=== PATIENT | male | born 1940 | race Caucasian/White ===

== ENCOUNTER 2020-03-06 16:51 | Emergency (ER) | payer MEDICARE, OTHER ==
[~2020-03-06] VITALS: Ht 182.9 cm; Wt 113.6 kg
[~2020-03-06 16:51] MED LIST: ACET-1008 PO; ACET-2319 PO; ALLO300T9 PO; CAR2T PO; CLOP75TA34 PO; FURO-150 PO; LOP25T PO; MAGN400C PO; MINO2.5T19 PO; OMEG1CAP2 PO; POTA20TA10 PO; PRAV40TA65 PO; RAMI5CAP65 PO; SITA50TA7 PO
[2020-03-06 17:49] VITALS: BP 165/87
== END 2020-03-06 17:54 | disposition home or self-care (01) ==
LOC: ER 16:51
DX: R11.0 Nausea (principal); R25.1 Tremor, unspecified; R10.84 Generalized abdominal pain; Z88.8 Allergy status to other drugs, medicaments and biological substances; Z79.899 Other long term (current) drug therapy
CPT/HCPCS: 99282

== ENCOUNTER 2020-04-13 13:06 | Emergency (ER) | payer MEDICARE, OTHER ==
[~2020-04-13] VITALS: Ht 182.9 cm; Wt 113.6 kg
[2020-04-13] MEDS ORDERED: hydrALAZINE 20mg/ml inj. IV ONE (16:00)
[2020-04-13 18:11] VITALS: BP 128/82
== END 2020-04-13 18:13 | disposition home or self-care (01) ==
LOC: ER 13:07
DX: I10 Essential (primary) hypertension (principal); Z88.8 Allergy status to other drugs, medicaments and biological substances; Z79.899 Other long term (current) drug therapy
CPT/HCPCS: 93005; 96374; 99284; J0360

== ENCOUNTER 2020-10-22 15:42 | Outpatient (CLI) | payer MEDICARE, OTHER ==
[~2020-10-22] VITALS: Ht 182.9 cm; Wt 106.6 kg
[~2020-10-22 15:42] MED LIST changes: +POTA-197 PO; -POTA20TA10 PO
[2020-10-22] MEDS ORDERED: albuterol 2.5 MG/3 ML nebule NEB ONE (16:55)
== END 2020-10-22 23:59 | disposition home or self-care (01) ==
LOC: RT 15:42
PROVIDERS: ATTEND Internal Medicine Cardiovascular Disease
DX: R94.2 Abnormal results of pulmonary function studies (principal); Z79.899 Other long term (current) drug therapy
CPT/HCPCS: 85018; 94060; 94727; 94729; 94760

== ENCOUNTER 2021-07-23 10:01 | Outpatient (CLI) | payer MEDICARE, OTHER | END 2021-07-23 23:59 | disposition home or self-care (01) | LOC: RAD 10:01 | PROVIDERS: ATTEND Psychiatry & Neurology Neurology | DX: R41.0 Disorientation, unspecified (principal) | CPT/HCPCS: 95816 ==

== ENCOUNTER 2023-10-04 05:54 | Day surgery (SDC) | payer MEDICARE, OTHER ==
[2023-10-03 14:27] LABS: BASOPHILS % (AUTO) 0.5 % (0-1); EOSINOPHILS # (AUTO) 0.2 X10'3 (0-0.9); EOSINOPHILS % (AUTO) 1.9 % (0-6); HEMATOCRIT 48.4 % (42.0-52.0); HEMOGLOBIN 15.7 g/dl (14.0-17.9); LYMPHOCYTES # (AUTO) 0.8 X10'3 (1.1-4.8); LYMPHOCYTES % (AUTO) 8.3 % (21-51); MEAN CORPUSCULAR HEMOGLOBIN 29.3 PG (27.0-31.0); MEAN CORPUSCULAR HGB CONC 32.5 g/dL (33.0-36.5); MEAN CORPUSCULAR VOLUME 90.2 FL (78-98); MEAN PLATELET VOLUME 7.2 FL (7.4-10.4); MONOCYTES # (AUTO) 0.7 X10'3 (0-0.9); MONOCYTES % (AUTO) 7.5 % (2-12); NEUTROPHILS # (AUTO) 7.8 X10'3 (1.8-7.7); NEUTROPHILS % (AUTO) 81.8 % (42-75); PLATELET COUNT 255 X10'3 (140-440); RED BLOOD COUNT 5.37 X10'6 (4.70-6.10); RED CELL DISTRIBUTION WIDTH 14.3 % (11.5-14.5); WHITE BLOOD COUNT 9.5 X10'3 (4.5-11.0)
[2023-10-03 14:28] LABS: ALBUMIN 3.3 G/DL (3.4-5.0); ANION GAP 3 (8-16); BLOOD UREA NITROGEN 20 MG/DL (7-18); BUN/CREATININE RATIO 15.9 (10.0-20.0); CALCIUM 9.3 MG/DL (8.5-10.1); CHLORIDE 102 MMOL/L (99-107); CREATININE 1.26 MG/DL (0.60-1.10); GLUCOSE 135 MG/DL (70-104); SODIUM 143 MMOL/L (135-145); eGFR 55 ML/MIN
[2023-10-03 14:35] LABS: APTT 28 SECONDS (22-32); PROTHROMBIN TIME 11.2 SECONDS (9.0-12.0)
[2023-10-04] VITALS (12 sets, daily range): BP systolic 96–128; BP diastolic 43–67; PULSE 60–65; RESP 12–18; TEMP 98; O2SAT 93–97
[~2023-10-04] VITALS: Ht 182.9 cm; Wt 110.5 kg
[~2023-10-04 05:54] MED LIST changes: -RAMI5CAP65 PO; +RAMI5CAP71 PO
[2023-10-04] MEDS ORDERED: FURO20TA4 PO (06:37)
[2023-10-04] MEDS ORDERED: LISI1TAB49 PO (06:37)
[2023-10-04] MEDS ORDERED: FOLI1TAB27 PO (06:37)
[2023-10-04] MEDS ORDERED: AMLO10TA13 PO (06:37)
[2023-10-04] MEDS ORDERED: MELA5TAB12 PO (06:37)
[2023-10-04] MEDS ORDERED: AMI200T PO (06:37)
[2023-10-04] MEDS ORDERED: SENN-25 PO (06:37)
[2023-10-04] MEDS ORDERED: APIX5TAB3 PO (06:37)
[2023-10-04] MEDS ORDERED: SITA100T11 PO (06:37)
[2023-10-04] MEDS ORDERED: METO100T14 PO (06:37)
[2023-10-04] MEDS ORDERED: FAMO20TA8 PO (06:37)
[2023-10-04] MEDS ORDERED: POTA8CAP20 PO (06:37)
[2023-10-04] MEDS ORDERED: GLIM2TAB6 PO (06:37)
[2023-10-04] MEDS ORDERED: ALLO100T PO (06:37)
[2023-10-04] MEDS: normal saline 1,000 ML IV SCH (07:14)
[2023-10-04] MEDS: diphenhydrAMINE 25mg capsule PO PRN (07:14)
[2023-10-04] MEDS: LORazepam 0.5 MG tablet PO PRN (07:14)
[2023-10-04] MEDS: sodium bicarbonate 1meq/ml syr 150 ML in dextrose 5%-water 1,000 ML IV SCH (07:14)
[2023-10-04] MEDS: acetylcysteine 200 MG/ml 4ml vial PO PRN (07:14)
[2023-10-04] MEDS ORDERED: iohexol 350MG/ML 100ml bottle IV ONE (07:20)
[2023-10-04] MEDS ORDERED: heparin 1,000unit/ml 10ml vial 10 ML ONE (07:20)
[2023-10-04] MEDS ORDERED: verapamil 2.5 mg/ml inj IV ONE (07:20)
[2023-10-04] MEDS ORDERED: midazolam 1 mg/ML 2ml injection ONE (07:20)
[2023-10-04] MEDS ORDERED: fentaNYL/PF 50MCG/1 ML 2ML syringe ONE (07:20)
[2023-10-04] MEDS ORDERED: LIDOcaine 1% (10mg/ml) 2ml vial ONE (07:20)
[2023-10-04] MEDS ORDERED: iohexol 350 MG/ML 50ML vial IV ONE ×2 (07:20→08:45)
[2023-10-04] MEDS ORDERED: nitroGLYCERIN 500mcg/5mL D5W 5 ML IV ONE (07:21)
[2023-10-04] MEDS ORDERED: sodium bicarbonate 1meq/ml syr 150 ML in dextrose 5%-water 1,000 ML IV ONE (11:50)
[2023-10-04 12:03] LABS: ISTAT Hct ART 44 %PCV (42-52); ISTAT O2 SATURATION ARTERIAL 100 % (95-98); ISTAT SOURCE ART
[2023-10-04] MEDS: furosemide 20 MG/2 ML vial IV ONE (12:32)
[2023-10-09 08:18] LABS: ISTAT Hct MIX 44 %PCV (42-52); ISTAT O2 SATURATION MIX VENOUS 78 % (60-80); ISTAT SOURCE VEN
== END 2023-10-04 15:00 | disposition home or self-care (01) ==
LOC: SSTAY O 05:54
PROVIDERS: ATTEND Internal Medicine Cardiovascular Disease
DX: T82.855A Stenosis of coronary artery stent, initial encounter (principal); I25.119 Atherosclerotic heart disease of native coronary artery with unspecified angina pectoris; I13.0 Hypertensive heart and chronic kidney disease with heart failure and stage 1 through stage 4 chronic kidney disease, or unspecified chronic kidney disease; E11.22 Type 2 diabetes mellitus with diabetic chronic kidney disease; N18.9 Chronic kidney disease, unspecified; I50.30 Unspecified diastolic (congestive) heart failure; E78.5 Hyperlipidemia, unspecified; I48.0 Paroxysmal atrial fibrillation; J44.9 Chronic obstructive pulmonary disease, unspecified; G47.33 Obstructive sleep apnea (adult) (pediatric); E66.3 Overweight; I35.0 Nonrheumatic aortic (valve) stenosis; M10.9 Gout, unspecified; I25.2 Old myocardial infarction; Z79.01 Long term (current) use of anticoagulants; Z79.02 Long term (current) use of antithrombotics/antiplatelets; Z79.84 Long term (current) use of oral hypoglycemic drugs; Z79.899 Other long term (current) drug therapy; Z95.0 Presence of cardiac pacemaker; Z95.5 Presence of coronary angioplasty implant and graft; Z96.652 Presence of left artificial knee joint; Z98.890 Other specified postprocedural states; Z68.33 Body mass index [BMI] 33.0-33.9, adult; Z88.8 Allergy status to other drugs, medicaments and biological substances; Z80.1 Family history of malignant neoplasm of trachea, bronchus and lung; Y71.2 Prosthetic and other implants, materials and accessory cardiovascular devices associated with adverse incidents; Y92.89 Other specified places as the place of occurrence of the external cause
CPT/HCPCS: 36415; 80048; 82803; 82948; 85014; 85025; 85610; 85730; 93005; 93460; 99152; 99153; A4615; A6258; A6402; C1725; C1751; C1769; C1894; J1644; J1940; J2001; J2250; J3010; J3490; J7030; J7070; Q0163; Q9967; Z7610; 76937; A6449

== ENCOUNTER 2023-10-20 09:31 | Outpatient (CLI) | payer MEDICARE, OTHER ==
[~2023-10-20] VITALS: Ht 180.3 cm; Wt 240.0 kg
[~2023-10-20 09:31] MED LIST changes: -ACET-1008 PO; -ACET-2319 PO; +ALLO100T PO; -ALLO300T9 PO; +AMI200T PO; +AMLO10TA13 PO; +APIX5TAB3 PO; -CAR2T PO; +FAMO20TA8 PO; +FOLI1TAB27 PO; -FURO-150 PO; +FURO20TA4 PO; +GLIM2TAB6 PO; +IODIXANOL 320 MG/ML INFUS..BTL 100ML IV ONE; +LISI1TAB49 PO; -LOP25T PO; -MAGN400C PO; +MELA5TAB12 PO; +METO100T14 PO; -MINO2.5T19 PO; -OMEG1CAP2 PO; -POTA-197 PO; +POTA8CAP20 PO; -RAMI5CAP71 PO; +SENN-25 PO; +SITA100T11 PO; -SITA50TA7 PO
[2023-10-20 10:04] LABS: BASOPHILS # (AUTO) 0.1 X10'3 (0-0.2); BASOPHILS % (AUTO) 0.5 % (0-1); EOSINOPHILS # (AUTO) 0.2 X10'3 (0-0.9); EOSINOPHILS % (AUTO) 2.2 % (0-6); HEMATOCRIT 45.1 % (42.0-52.0); HEMOGLOBIN 14.8 g/dl (14.0-17.9); LYMPHOCYTES # (AUTO) 0.7 X10'3 (1.1-4.8); LYMPHOCYTES % (AUTO) 7.2 % (21-51); MEAN CORPUSCULAR HEMOGLOBIN 29.2 PG (27.0-31.0); MEAN CORPUSCULAR HGB CONC 32.9 g/dL (33.0-36.5); MEAN CORPUSCULAR VOLUME 88.9 FL (78-98); MEAN PLATELET VOLUME 7.2 FL (7.4-10.4); MONOCYTES # (AUTO) 0.5 X10'3 (0-0.9); MONOCYTES % (AUTO) 5.3 % (2-12); NEUTROPHILS % (AUTO) 84.8 % (42-75); PLATELET COUNT 259 X10'3 (140-440); RED BLOOD COUNT 5.08 X10'6 (4.70-6.10); RED CELL DISTRIBUTION WIDTH 14.8 % (11.5-14.5); WHITE BLOOD COUNT 9.5 X10'3 (4.5-11.0)
[2023-10-20 10:17] LABS: APTT 29 SECONDS (22-32); INR 1.1 INR; PROTHROMBIN TIME 11.7 SECONDS (9.0-12.0)
[2023-10-20 10:32] LABS: ALANINE AMINOTRANSFERASE 10 U/L (12-78); ALBUMIN 2.9 G/DL (3.4-5.0); ALBUMIN/GLOBULIN RATIO 0.8 (1.1-1.5); ALKALINE PHOSPHATASE 122 IU/L (46-116); ANION GAP 4 (8-16); BILIRUBIN,TOTAL 0.4 MG/DL (0.1-1.0); BLOOD UREA NITROGEN 18 MG/DL (7-18); BUN/CREATININE RATIO 14.6 (10.0-20.0); CALCIUM 8.9 MG/DL (8.5-10.1); CHLORIDE 102 MMOL/L (99-107); CREATININE 1.23 MG/DL (0.60-1.10); GLUCOSE 219 MG/DL (70-104); PRO BRAIN NATRIURETIC PEPTIDE 1448 PG/ML (0-450); SODIUM 142 MMOL/L (135-145); TOTAL PROTEIN 6.7 G/DL (6.4-8.2); eGFR 56 ML/MIN
[2023-10-20 10:35] LABS: ASPARTATE AMINO TRANSFERASE 17 U/L (10-37); POTASSIUM 4.2 MMOL/L (3.5-5.1)
[2023-10-20 11:49] LABS: ABG BASE EXCESS 3.1 mmol/L (-2.0-3.0); ABG OXYGEN SATURATION 94.9 % (94.0-98.0); ABG PO2 (T) 79.6 mmHg (83.0-108.0); ALLEN'S TEST POSITIVE; FCOHb 0.5 % (0.5-1.5); FHHb 5.1 % (0.0-5.0); FLOW 2 L/min; FMetHb 0.2 % (0.0-1.5); FO2Hb 94.2 % (94.0-98.0); MODE NASAL CANNULA
[2023-10-20] MEDS: albuterol 2.5 MG/3 ML nebule NEB ONE ×2 (12:19→12:21)
[2023-10-20 12:21] VITALS: PULSE 63; RESP 15; O2SAT 85
[2023-10-20 12:32] VITALS: PULSE 63; RESP 18
== END 2023-10-20 23:59 | disposition home or self-care (01) ==
LOC: RAD 09:31
PROVIDERS: ATTEND Internal Medicine Cardiovascular Disease
DX: Z01.818 Encounter for other preprocedural examination (principal); J90 Pleural effusion, not elsewhere classified; R91.1 Solitary pulmonary nodule; J98.11 Atelectasis; R59.0 Localized enlarged lymph nodes; E27.8 Other specified disorders of adrenal gland; K76.9 Liver disease, unspecified; K80.20 Calculus of gallbladder without cholecystitis without obstruction; N28.1 Cyst of kidney, acquired; K57.30 Diverticulosis of large intestine without perforation or abscess without bleeding; K40.90 Unilateral inguinal hernia, without obstruction or gangrene, not specified as recurrent; M47.814 Spondylosis without myelopathy or radiculopathy, thoracic region; R60.9 Edema, unspecified; I65.23 Occlusion and stenosis of bilateral carotid arteries; R06.02 Shortness of breath; I35.0 Nonrheumatic aortic (valve) stenosis
CPT/HCPCS: 36415; 36600; 71046; 71275; 74174; 75572; 80053; 82803; 83880; 85018; 85025; 85610; 85730; 93880; 94060; 94727; 94729; 94760; Q9967

== ENCOUNTER 2023-10-27 11:59 | Inpatient (IN) | payer MEDICARE, OTHER ==
[~2023-10-27] VITALS: Ht 182.9 cm; Wt 112.5 kg
[~2023-10-27 11:59] MED LIST changes: -IODIXANOL 320 MG/ML INFUS..BTL 100ML IV ONE
[2023-10-27] MEDS ORDERED: iohexol 350MG/ML 100ml bottle IV ONE (12:46)
[2023-10-27 13:33] LABS: BASOPHILS # (AUTO) 0.1 X10'3 (0-0.2); BASOPHILS % (AUTO) 0.4 % (0-1); EOSINOPHILS # (AUTO) 0.1 X10'3 (0-0.9); EOSINOPHILS % (AUTO) 1.1 % (0-6); HEMATOCRIT 48.5 % (42.0-52.0); HEMOGLOBIN 15.7 g/dl (14.0-17.9); LYMPHOCYTES # (AUTO) 0.7 X10'3 (1.1-4.8); LYMPHOCYTES % (AUTO) 5.7 % (21-51); MEAN CORPUSCULAR HGB CONC 32.3 g/dL (33.0-36.5); MEAN CORPUSCULAR VOLUME 90.1 FL (78-98); MEAN PLATELET VOLUME 7.3 FL (7.4-10.4); MONOCYTES # (AUTO) 0.6 X10'3 (0-0.9); MONOCYTES % (AUTO) 5.1 % (2-12); NEUTROPHILS # (AUTO) 10.8 X10'3 (1.8-7.7); NEUTROPHILS % (AUTO) 87.7 % (42-75); PLATELET COUNT 236 X10'3 (140-440); RED BLOOD COUNT 5.39 X10'6 (4.70-6.10); RED CELL DISTRIBUTION WIDTH 14.6 % (11.5-14.5); WHITE BLOOD COUNT 12.3 X10'3 (4.5-11.0)
[2023-10-27 13:39] LABS: ALBUMIN 3.5 G/DL (3.4-5.0); ANION GAP 6 (8-16); BLOOD UREA NITROGEN 17 MG/DL (7-18); BUN/CREATININE RATIO 13.7 (10.0-20.0); CALCIUM 9.3 MG/DL (8.5-10.1); CHLORIDE 102 MMOL/L (99-107); CREATININE 1.24 MG/DL (0.60-1.10); GLUCOSE 137 MG/DL (70-104); POTASSIUM 4.4 MMOL/L (3.5-5.1); SODIUM 142 MMOL/L (135-145); TOTAL CARBON DIOXIDE 34.3 MMOL/L (24-32); eCRCL 51 ML/MIN; eGFR 56 ML/MIN
[2023-10-27 13:41] LABS: APTT 29 SECONDS (22-32); INR 1.1 INR; PROTHROMBIN TIME 11.1 SECONDS (9.0-12.0)
[2023-10-27 13:52] LABS: BILIRUBIN,URINE NEGATIVE (Neg); CLARITY,URINE CLEAR (Clear); COLOR,URINE YELLOW (Yellow); GLUCOSE, URINE NEGATIVE (Neg); KETONES,URINE NEGATIVE (Neg); LEUKOCYTE ESTERASE ,URINE NEGATIVE (Neg); NITRITES, URINE NEGATIVE (Neg); OCCULT BLOOD,URINE NEGATIVE (Neg); PROTEIN,URINE NEGATIVE (Neg); UROBILINOGEN,URINE 0.2 E.U/dL (0.2-1.0)
[2023-10-27 13:56] LABS: UA COLLECTION TYPE VOIDED
[2023-10-27] MEDS ORDERED: acetaminophen 325mg tablet PO PRN (14:35)
[2023-10-27] MEDS ORDERED: potassium Cl 40MEQ/1/2NS 520ml 520 ML IV PRN (14:35)
[2023-10-27] MEDS ORDERED: magnesium Cl slow-release 64mg tablet PO PRN (14:35)
[2023-10-27] MEDS ORDERED: magnesium sulf-water 4G/100mL 100 ML IV PRN (14:35)
[2023-10-27] MEDS ORDERED: potassium Cl 20 mEq SR tablet PO PRN ×2 (14:35)
[2023-10-27] MEDS ORDERED: ondansetron/PF 4mg/2ml inj IV PRN (14:35)
[2023-10-27] MEDS ORDERED: mag hydrox/Alum hydrox/simeth 30ml oral suspension PO PRN (14:35)
[2023-10-27] MEDS ORDERED: magnesium sulf-water 2g/50mL 50 ML IV PRN (14:35)
[2023-10-27] MEDS ORDERED: clopidogrel 75mg tablet PO SCH (14:40)
[2023-10-27] MEDS: normal saline 1000ml 1,000 ML IV SCH (15:11)
[2023-10-27] MEDS: atorvastatin 20mg tablet PO SCH (15:11)
[2023-10-27] MEDS: clopidogrel 300mg tablet PO ONE (15:11)
[2023-10-27 16:49] LABS: CHOL/HDL RATIO 3.2 (0.00-4.99); CHOLESTEROL 149 MG/DL (0-200); HDL CHOLESTEROL 46 MG/DL (35-60); LDL CHOLESTEROL 75 MG/DL (50-100); TRIGLYCERIDES 157 MG/DL (20-135)
[2023-10-27 16:59] LABS: HEMOGLOBIN A1C 6.8 % (4.5-6.2)
[2023-10-27 17:25] LABS: FREE T4 (FREE THYROXINE) 1.36 NG/DL (0.73-1.40); THYROID STIMULATING HORMONE 1.08 ulU/ml (0.34-4.50)
[2023-10-27 18:00] VITALS: BP 150/84; PULSE 79; RESP 19; TEMP 97.9; O2SAT 92
[2023-10-27] MEDS ORDERED: dextrose 50%-water 50ml dispensing syringe IV PRN ×2 (18:20)
[2023-10-27] MEDS ORDERED: glucagon, human recombinant 1mg kit SUBCUT PRN (18:20)
[2023-10-27] MEDS ORDERED: DEXTROSE 15 GM of carb/4 tabs (each vial/BOTTLE has 4 tablets) PO PRN ×2 (18:20)
[2023-10-27] MEDS: LORazepam 2 mg/ml vial IV ONE (18:29)
[2023-10-27] MEDS: K and/or MAG REPLACEMENT MC SCH (20:00)
[2023-10-27] MEDS: docusate sod 100mg capsule PO SCH (20:26)
[2023-10-27] MEDS: apixaban 5mg tablet PO SCH (20:26)
[2023-10-27] MEDS: amiodarone 100mg tablet PO SCH (20:26)
[2023-10-27] MEDS: Melatonin 3mg tablet PO SCH (20:26)
[2023-10-27] MEDS: INSULIN LISPRO 100 UNIT/ML INSULN.PEN MULTI-DOSE SQ SCH (20:32)
[2023-10-27] MEDS: insulin glargine (Lantus) pen - multi-dose SQ SCH (20:33)
[2023-10-27 22:00] VITALS: BP 131/56; PULSE 56; RESP 16; TEMP 97.4; O2SAT 91
[2023-10-28] VITALS (9 sets, daily range): BP systolic 137–166; BP diastolic 55–72; PULSE 55–72; RESP 16–20; TEMP 97–97.9; O2SAT 90–96
[2023-10-28 06:53] LABS: ALANINE AMINOTRANSFERASE 17 U/L (12-78); ALBUMIN/GLOBULIN RATIO 0.9 (1.1-1.5); ALKALINE PHOSPHATASE 125 IU/L (46-116); ANION GAP 6 (8-16); ASPARTATE AMINO TRANSFERASE 15 U/L (10-37); BILIRUBIN,TOTAL 0.5 MG/DL (0.1-1.0); BLOOD UREA NITROGEN 18 MG/DL (7-18); BUN/CREATININE RATIO 15.9 (10.0-20.0); CALCIUM 8.7 MG/DL (8.5-10.1); CHLORIDE 104 MMOL/L (99-107); CREATININE 1.13 MG/DL (0.60-1.10); GLUCOSE 85 MG/DL (70-104); SODIUM 144 MMOL/L (135-145); TOTAL CARBON DIOXIDE 34.5 MMOL/L (24-32); TOTAL PROTEIN 6.2 G/DL (6.4-8.2); eCRCL 56 ML/MIN; eGFR 62 ML/MIN
[2023-10-28] MEDS ORDERED: clopidogrel 75mg tablet PO SCH (07:00)
[2023-10-28] MEDS ORDERED: aspirin 325mg tablet PO SCH (08:00)
[2023-10-28 08:20] LABS: PRO BRAIN NATRIURETIC PEPTIDE 2567 PG/ML (0-450)
[2023-10-28 09:58] LABS: BASOPHILS % (AUTO) 0.4 % (0-1); EOSINOPHILS # (AUTO) 0.1 X10'3 (0-0.9); EOSINOPHILS % (AUTO) 1.2 % (0-6); HEMATOCRIT 43.8 % (42.0-52.0); LYMPHOCYTES # (AUTO) 0.7 X10'3 (1.1-4.8); MEAN CORPUSCULAR HEMOGLOBIN 28.5 PG (27.0-31.0); MEAN CORPUSCULAR HGB CONC 31.9 g/dL (33.0-36.5); MEAN CORPUSCULAR VOLUME 89.3 FL (78-98); MEAN PLATELET VOLUME 7.3 FL (7.4-10.4); MONOCYTES # (AUTO) 0.8 X10'3 (0-0.9); MONOCYTES % (AUTO) 6.6 % (2-12); NEUTROPHILS # (AUTO) 10.1 X10'3 (1.8-7.7); NEUTROPHILS % (AUTO) 85.8 % (42-75); PLATELET COUNT 211 X10'3 (140-440); RED BLOOD COUNT 4.91 X10'6 (4.70-6.10); RED CELL DISTRIBUTION WIDTH 14.8 % (11.5-14.5); WHITE BLOOD COUNT 11.7 X10'3 (4.5-11.0)
[2023-10-28] MEDS: amLODIPine 5mg tablet PO SCH (10:07)
[2023-10-28] MEDS: metoprolol tartrate 50mg tablet PO SCH (10:08)
[2023-10-28] MEDS: furosemide 20MG tablet PO SCH (10:09)
[2023-10-28] MEDS: folic acid 1mg tablet PO SCH (10:09)
[2023-10-28] MEDS: HYDROchlorothiazide 12.5mg capsule PO SCH (10:11)
[2023-10-28] MEDS: lisinopril 5mg tablet PO SCH (10:12)
[2023-10-28] MEDS: allopurinol 100mg tablet PO SCH (10:13)
[2023-10-28] MEDS: famotidine 20mg tablet PO SCH (10:14)
[2023-10-28] MEDS: clopidogrel 75mg tablet PO SCH (10:14)
[2023-10-28] MEDS ORDERED: AMLO10TA13 PO (11:39)
[2023-10-28] MEDS ORDERED: METO100T14 PO (11:39)
[2023-10-28] MEDS ORDERED: ATOR20TA66 PO (11:39)
[2023-10-28] MEDS ORDERED: LISI1TAB49 PO (11:39)
[2023-10-28] MEDS ORDERED: AMI200T PO (11:39)
[2023-10-28] MEDS ORDERED: CLOP75TA34 PO (11:39)
[2023-10-28] MEDS ORDERED: APIX5TAB3 PO (11:39)
[2023-10-28] MEDS ORDERED: albuterol 2.5 MG/3 ML nebule NEB PRN (18:55)
[2023-10-28] MEDS: furosemide 40mg/4ml inj IV ONE (19:02)
[2023-10-28] MEDS: albuterol 2.5 MG/3 ML nebule NEB SCH (20:09)
[2023-10-29] VITALS (19 sets, daily range): BP systolic 119–151; BP diastolic 53–69; PULSE 58–78; RESP 14–19; TEMP 96.9–98.1; O2SAT 92–96
[2023-10-29 06:55] LABS: ALANINE AMINOTRANSFERASE 12 U/L (12-78); ALBUMIN/GLOBULIN RATIO 0.9 (1.1-1.5); ALKALINE PHOSPHATASE 123 IU/L (46-116); ANION GAP 5 (8-16); ASPARTATE AMINO TRANSFERASE 13 U/L (10-37); BILIRUBIN,TOTAL 0.4 MG/DL (0.1-1.0); BLOOD UREA NITROGEN 22 MG/DL (7-18); BUN/CREATININE RATIO 19.5 (10.0-20.0); CALCIUM 9.1 MG/DL (8.5-10.1); CHLORIDE 105 MMOL/L (99-107); CREATININE 1.13 MG/DL (0.60-1.10); GLUCOSE 130 MG/DL (70-104); POTASSIUM 3.9 MMOL/L (3.5-5.1); SODIUM 145 MMOL/L (135-145); TOTAL CARBON DIOXIDE 34.8 MMOL/L (24-32); TOTAL PROTEIN 6.3 G/DL (6.4-8.2); eCRCL 56 ML/MIN; eGFR 62 ML/MIN
[2023-10-29] MEDS ORDERED: furosemide 40mg/4ml inj IV SCH (08:00)
[2023-10-29] MEDS: magnesium hydroxide 30ml (MOM) UD suspension PO PRN (16:53)
[2023-10-30] VITALS (15 sets, daily range): BP systolic 119–139; BP diastolic 49–66; PULSE 64–86; RESP 16–22; TEMP 97.3–98.5; O2SAT 90–95
[2023-10-30 06:05] LABS: ALANINE AMINOTRANSFERASE 14 U/L (12-78); ALBUMIN 2.8 G/DL (3.4-5.0); ALBUMIN/GLOBULIN RATIO 0.9 (1.1-1.5); ALKALINE PHOSPHATASE 108 IU/L (46-116); ANION GAP 5 (8-16); ASPARTATE AMINO TRANSFERASE 12 U/L (10-37); BILIRUBIN,TOTAL 0.4 MG/DL (0.1-1.0); BLOOD UREA NITROGEN 28 MG/DL (7-18); BUN/CREATININE RATIO 21.4 (10.0-20.0); CHLORIDE 104 MMOL/L (99-107); CREATININE 1.31 MG/DL (0.60-1.10); GLUCOSE 129 MG/DL (70-104); SODIUM 142 MMOL/L (135-145); TOTAL CARBON DIOXIDE 33.3 MMOL/L (24-32); TOTAL PROTEIN 5.9 G/DL (6.4-8.2); eCRCL 49 ML/MIN; eGFR 53 ML/MIN
[2023-10-30] MEDS: furosemide 20 MG/2 ML vial IV ONE (12:46)
[2023-10-30] MEDS ORDERED: ondansetron 4mg rapidly disintigrating tab PO PRN (14:35)
[2023-10-30] MEDS ORDERED: famotidine 20mg tablet PO SCH (16:43)
[2023-10-30] MEDS: furosemide 40mg/4ml inj IV SCH (20:34)
[2023-10-31 02:52] VITALS: PULSE 66; RESP 20; O2SAT 90
[2023-10-31 02:57] VITALS: PULSE 66; RESP 18
[2023-10-31 06:00] VITALS: BP 96/60; PULSE 74; RESP 18; TEMP 98; O2SAT 93
[2023-10-31 08:00] VITALS: BP_SYST 96; RESP 18; O2SAT 93
[2023-10-31] MEDS: lisinopril 10 MG tablet PO SCH (08:00)
[2023-10-31 08:46] VITALS: PULSE 77; RESP 20; O2SAT 95
[2023-10-31 08:51] VITALS: PULSE 77; RESP 20
[2023-10-31 09:59] LABS: BASOPHILS % (AUTO) 0.3 % (0-1); EOSINOPHILS # (AUTO) 0.1 X10'3 (0-0.9); EOSINOPHILS % (AUTO) 0.8 % (0-6); HEMATOCRIT 41.3 % (42.0-52.0); HEMOGLOBIN 13.3 g/dl (14.0-17.9); LYMPHOCYTES # (AUTO) 0.9 X10'3 (1.1-4.8); LYMPHOCYTES % (AUTO) 7.4 % (21-51); MEAN CORPUSCULAR HEMOGLOBIN 28.9 PG (27.0-31.0); MEAN CORPUSCULAR HGB CONC 32.2 g/dL (33.0-36.5); MEAN CORPUSCULAR VOLUME 89.5 FL (78-98); MEAN PLATELET VOLUME 8.7 FL (7.4-10.4); MONOCYTES # (AUTO) 1.1 X10'3 (0-0.9); MONOCYTES % (AUTO) 9.1 % (2-12); NEUTROPHILS # (AUTO) 10.1 X10'3 (1.8-7.7); NEUTROPHILS % (AUTO) 82.4 % (42-75); PLATELET COUNT 220 X10'3 (140-440); RED BLOOD COUNT 4.62 X10'6 (4.70-6.10); RED CELL DISTRIBUTION WIDTH 14.8 % (11.5-14.5); WHITE BLOOD COUNT 12.3 X10'3 (4.5-11.0)
[2023-10-31] MEDS ORDERED: FURO20TA4 PO (10:13)
[2023-10-31] MEDS ORDERED: LISI10TA27 PO (10:13)
== END 2023-10-31 13:09 | disposition home or self-care (01) | DRG 291 ==
LOC: ER 12:00 → ED HOLD 14:42 → ORTHO 4S 17:00
PROVIDERS: ADMIT Internal Medicine; ATTEND Internal Medicine
PROC: B3251ZZ Computerized Tomography (CT Scan) of Bilateral Common Carotid Arteries using Low Osmolar Contrast (ICD-10-PCS; principal; 2023-10-27)
PROC: B32G1ZZ Computerized Tomography (CT Scan) of Bilateral Vertebral Arteries using Low Osmolar Contrast (ICD-10-PCS; 2023-10-27)
PROC: B32R1ZZ Computerized Tomography (CT Scan) of Intracranial Arteries using Low Osmolar Contrast (ICD-10-PCS; 2023-10-27)
PROC: B3281ZZ Computerized Tomography (CT Scan) of Bilateral Internal Carotid Arteries using Low Osmolar Contrast (ICD-10-PCS; 2023-10-27)
PROC: 5A09357 Assistance with Respiratory Ventilation, Less than 24 Consecutive Hours, Continuous Positive Airway Pressure (ICD-10-PCS; 2023-10-31)
DX: I13.0 Hypertensive heart and chronic kidney disease with heart failure and stage 1 through stage 4 chronic kidney disease, or unspecified chronic kidney disease (principal); I50.33 Acute on chronic diastolic (congestive) heart failure; J96.01 Acute respiratory failure with hypoxia; G45.9 Transient cerebral ischemic attack, unspecified; I49.5 Sick sinus syndrome; E11.22 Type 2 diabetes mellitus with diabetic chronic kidney disease; G47.33 Obstructive sleep apnea (adult) (pediatric); N18.30 Chronic kidney disease, stage 3 unspecified; I35.0 Nonrheumatic aortic (valve) stenosis; J44.9 Chronic obstructive pulmonary disease, unspecified; I48.0 Paroxysmal atrial fibrillation; E78.5 Hyperlipidemia, unspecified; E11.42 Type 2 diabetes mellitus with diabetic polyneuropathy; I25.10 Atherosclerotic heart disease of native coronary artery without angina pectoris; F41.9 Anxiety disorder, unspecified; Z95.0 Presence of cardiac pacemaker; Z79.899 Other long term (current) drug therapy; Z79.01 Long term (current) use of anticoagulants; Z88.8 Allergy status to other drugs, medicaments and biological substances; Z95.5 Presence of coronary angioplasty implant and graft; Z87.891 Personal history of nicotine dependence
CPT/HCPCS: 36415; 70450; 70496; 70498; 71045; 80048; 80053; 80061; 81003; 82948; 83036; 83735; 83880; 84145; 84439; 84443; 85025; 85610; 85651; 85730; 86885; 86900; 86901; 87081; 92508; 92616; 93005; 93306; 94640; 94660; 94664; 94760; 97116; 97161; 97530; 99285; A4615; A6449; A6590; G0378; J1815; J1940; J2060; J7030; Q9967